=== PATIENT | male | born 1990 | race Caucasian/White ===

== ENCOUNTER → 2021-07-04 10:06 | Outpatient (BNVA) | payer OTHER, SELFPAY | PROVIDERS: PCP Nurse Practitioner Family; Visit Provider Nurse Practitioner Family | DX: Z20.822 Contact with and (suspected) exposure to COVID-19 (principal) | CPT/HCPCS: 87635 ==

== ENCOUNTER 2023-08-09 04:59 | Emergency (ER) | payer OTHER, SELFPAY ==
[2023-08-09 05:34] VITALS: BP 124/86; PULSE 61; RESP 16; TEMP 36.8; O2SAT 100; BMI 20.5
--- NOTE | 2023-08-09 05:47 | ED_ITS ---
HPI - Dental/Oral General: Chief complaint: Dental/Oral Stated complaint: mouth pain right side Time Seen by Provider: 08/09/23 05:47 Source: patient Mode of arrival: ambulatory History of Present Illness: 33-year-old male presents to the emergen cy room with complaints of right mandibular pain intermittently for the last couple of months he has tried [id number] analgesics with only moderate relief. No swelling or drainage at this time he has made attempts to see the dentist but has been not been able to get into see 1 up till this point. No fever sweats or chills. MD Complaint: tooth pain Duration: constant Severity: mild Relieving factors: nothing Exacerbating factors: chewing Context: history of dental caries and poor dental care Associated symptoms: Denies ear or mastoid pain or fever(s) Treatment prior to arrival: oral analgesic Review of Systems Const: Denies: fever(s) or chills ENMT: Reports: dental pain; Denies: ear or mastoid pain Card: Denies: chest pain Resp: Denies: dyspnea GI: Denies: abdominal pain Musc: Denies: neck pain or back pain PFSH ED PFSH: Medical History Caries Cigarette smoker Surgical History No significant past surgical history Family History Mother Hypertension Social History Smoking and tobacco/nicotine status: current every day tobacco/nicotine user cigarettes Packs smoked per day: 1 Second hand smoke exposure: Yes Alcohol intake: never Substance/Drug Use: never Adopted: No Caregiver/support person: No Lives independently: Yes Household members: family Housing: House Marital status: Single Number of children: 2 Physical Exam Const: GENERAL APPEARANCE: cooperative and comfortable ORIENTATION/CONSCIO USNESS: Yes awake, Yes oriented to person, Yes oriented to place and Yes oriented to time HENMT: COMMON NORMALS: normocephalic, atraumatic and hearing grossly normal bilaterally HEAD & SCALP: normocephalic and atraumatic OTHER: Extremely poor dentition with erosion of multiple teeth particularly molars. No swelling of the gum. No identifiable abscess. Palpation of the neck no lymphadenopathy no significant swelling at this time Resp: COMMON NORMALS: normal respiratory effort, No retractions, No use of accessory muscles and clear to auscultation bilaterally AUSCULTATION: clear to auscultation bilaterally Cardio: COMMON NORMALS: regular rate, regular rhythm and No murmurs present (Cardio) RATE: regular rate RHYTHM: regular rhythm Extremity: COMMON NORMALS: normal to inspection, capillary refill normal, no clubbing, cyanosis or edema, no calf tenderness and no pedal edema Neuro: SENSORIUM/ORIENTATION: Yes oriented to person, Yes oriented to place and Yes oriented to time Skin: COMMON NORMALS: no rashes or lesions noted GENERAL SKIN EXAM: no rashes or lesions noted Course Vital Signs: Vital signs: Vital Signs Temperature 98.2 F 08/09/23 05:34 Pulse Rate 61 08/09/23 05:34 Respiratory Rate 16 08/09/23 05:34 Blood Pressure 124/86 08/09/23 05:34 Pulse Oximetry 100 08/09/23 05:34 Oxygen Delivery Me thod Room Air 08/09/23 05:34 MDM - Dental/Oral Medical Decision Making Multiple dental caries significant erosion of teeth to the gumline. No identifiable abscess at this time. Will start on oral antibiotics also use diclofenac as needed. Encouraged follow-up with dentist as soon as able for definitive care No radiology studies performed this visit Discharge Plan Discharge Patient Disposition: Home Clinical Impression: Toothache Condition: Stable Prescriptions: New diclofenac sodium 75 mg tablet,delayed release (DR/EC) 75 mg PO Q12H PRN (Reason: pain) Qty: 20 0RF amoxicillin-pot clavulanate 875-125 mg tablet 1 tab PO BID Qty: 20 0RF No Action trazodone 100 mg tablet 100 mg PO .at bedtime Qty: 30 0RF Discharge Orders: Discharge ED (Routine); Ordered 08/09/23 Ordered By: Judah Guthrie Referrals: Nelia Elise FNP-C [Primary Care Provider] - Discharge Diet: Usual diet Discharge Activity: Resume usual activity Patient Instructions: Opioid Safety, Pain Management Activity Restrictions/Additional Instructions: Thank you for choosing [facility] for your healthcare needs today. Please realize this is an emergency room and that we are providing you with a medical screening exam and this may not be complete and all inclusive of all the testing and or work up that you may need to determine your ailment or severity of your illness. It is very important that you follow up as instructed or that you return to the Emergency Department should you have concerns or if your condition changes or worsens in any way. You were seen today for dental pain. Recommend you start oral antibiotic 1 pill twice a day for 10 days. You are also given diclofenac to use for pain. If you are taking diclofenac you should not take any ibuprofen, Motrin, Aleve or Naprosyn. You should see a dentist for definitive care as soon as you are able. The antibiotics alone will not completely resolve the issue. Coding Level of Care Code ED Jewel Hole Gauger for Lilia Culp
[2023-08-09 06:18] VITALS: BP 124/86; PULSE 61; RESP 16; TEMP 36.8; O2SAT 100
== END 2023-08-09 06:19 | disposition home or self-care (01) ==
PROVIDERS: Emergency Provider Family Medicine; PCP Nurse Practitioner Family
DX: K08.89 Other specified disorders of teeth and supporting structures (principal); F17.210 Nicotine dependence, cigarettes, uncomplicated
CPT/HCPCS: 99283